=== PATIENT | female | born 1985 | race Caucasian/White ===

== ENCOUNTER 2018-02-04 14:09 | Outpatient (CLI) | payer OTHER ==
--- NOTE | 2018-02-04 16:35 | ULT ---
OBSTETRIC ULTRASOUND: 02/04/18 INDICATION: Evaluate anatomy. COMPARISON: None. FINDINGS: There is a single live intrauterine gestation in breech presentation. The placenta is fundal in locat ion without evidence of previa. The cardiac activity is noted at 155 beats per minute. JULIAN is noted a t 12.6 cm. Biparietal diameter measures 4.98 cm giving an estimated gestational age of 21 weeks and 1 day (58t h percentile). The head circumference measures 18.86 cm giving an estimated gestational age 21 weeks and 1 day (55th percentile). The abdominal circumference measures 16.15 cm giving an estimated gestational age of 21 weeks and 2 d ays (56th percentile). The femoral length was 3.6 cm giving an estimated gestational age of 21 weeks and 3 days (61st percen tile). The estimated weight is 413 grams (69th percentile). The average gestational age of the fetus based on ultrasound measurements 21 weeks and 1 day with est imated due date of 06/16/18. Clinical age by LMP was 20 weeks and 6 day with estimated due date of 06/04 08/22. The visualized head, spine, stomach, kidneys, heart, cord insertion, bladder, lips and nose, th ree vessel cord and extremities were within normal limits. The cervical length was 5.5 cm. IMPRESSION: 1. Single live intrauterine gestation with size and dates as above. 2. survey was within normal limits. POS: [facility]
== END 2018-02-04 14:10 | disposition home or self-care (01) ==
LOC: ULT 14:09
PROVIDERS: ATTEND Obstetrics & Gynecology
DX: Z34.92 Encounter for supervision of normal pregnancy, unspecified, second trimester (principal); Z3A.21 21 weeks gestation of pregnancy
CPT/HCPCS: 76805

== ENCOUNTER 2018-06-11 00:15 | Inpatient (IN) | payer OTHER ==
[2018-06-11 01:20] VITALS: BMI 27.4
[2018-06-11] MEDS ORDERED: Butorphanol Tartrate 1 MG/ML VIAL SLOW IVP PRN (01:58)
[2018-06-11] MEDS ORDERED: Acetaminophen 500 MG TAB PO PRN (01:58)
[2018-06-11] MEDS ORDERED: Promethazine HCl 25 MG/ML VIAL IM PRN ×2 (01:58→09:32)
[2018-06-11] MEDS ORDERED: Ondansetron PF 4 MG/2 ML Vial IVP PRN ×3 (01:58→14:48)
[2018-06-11] MEDS ORDERED: Misoprostol 200 MCG TAB RC PRN (02:00)
[2018-06-11] MEDS ORDERED: Ibuprofen 800 MG TAB PO PRN (02:00)
[2018-06-11] MEDS ORDERED: Misoprostol 100 MCG TAB VAG SCH (02:00)
[2018-06-11] MEDS ORDERED: NS w/ Oxytocin 10 units 500 ML IV SCH ×2 (02:00)
[2018-06-11] MEDS: Lactated Ringer's 1,000 ML IV SCH ×3 (02:00→10:10)
[2018-06-11] MEDS ORDERED: Lidocaine 1% (PF) 30 ML VIAL SC PRN (02:00)
[2018-06-11] MEDS ORDERED: NS / Oxytocin 40 units/1000ml 1,000 ML IV SCH ×2 (02:15→14:48)
[2018-06-11 05:47] LABS: Hemoglobin 10.8 g/dL (12.0-16.0); Mean Corpuscular HGB CONC 31.1 g/dL (32.0-36.0); Mean Corpuscular Volume 83.5 fL (78.0-98.0); Mean Platelet Volume 8.5 fL (7.4-10.4); Platelet Count 227 thou/uL (130-400); RBC Distribution Width 13.1 % (11.5-14.5); Red Blood Cell (RBC) Count 4.14 mill/uL (4.20-5.40); White Blood Cell (WBC) Count 11.5 thou/uL (4.8-10.8)
[2018-06-11 06:23] LABS: Hep B Surf Ag Non-Reactive S/CO (NonReactive); Syphilis Antibody Nonreactive (Nonreactive); Syphilis Antibody Index 0.02 S/CO (<1.00 Non-Reactive)
[2018-06-11] MEDS ORDERED: Bupivacaine/Epinephrine 0.25% 30 ML VIAL ONE (08:00)
[2018-06-11] MEDS ORDERED: Bupivacaine 0.5% 10 ML VIAL ONE (08:00)
[2018-06-11] MEDS ORDERED: ePHEDrine/0.9% NaCl/PF SYRINGE 50 mg/10 ml ONE (08:00)
--- NOTE | 2018-06-11 08:14 | PDOC.LDHP ---
Labor and Delivery H&P Chief complaint: scheduled induction HPI: Pt is here for elective IOL @ 39weeks. Current gestational age (weeks): 39 Due date: 06/18/18 Grav: 2 Para: 1 OB History Details: PPROM/delivery 35 weeks Current complications: none Abnormal US findings: No Current medications: pre- vitamins Allergies/Adverse Reactions: Allergies Allergy/AdvReac Type Severity Reaction Status Date / Time No Known Allergies Allergy Verified 06/11/18 01:21 - Physical Exam Vital signs reviewed and normal: yes General: resting Heart: RRR Lungs: CTAB Abdomen: gravid Extremeties: no edema FHT: category 1 - Vaginal Exam cm dilated: 3 Effacement: 50% Station: -2 - Assessment L&D Assessment: elective induction at term - Plan Plan: admit to L&D, cervical ripening, labor augmentation if indicated, informed consent obtained, anesthesia consult for pain management -: A/P: Elective IOL @ 39 weeks, cytotec for cervical ripening overnight, AROM this AM with scant fluid noted. Will start pitocin.
[2018-06-11] MEDS ORDERED: Fentanyl 4 mcg/Bup 0.1% Cadd 100 ML ONE (08:49)
[2018-06-11] MEDS ORDERED: diphenhydrAMINE 50 MG/ML VIAL IVP PRN (09:32)
[2018-06-11] MEDS ORDERED: Lactated Ringer's 500 ML IV PRN (09:32)
[2018-06-11] MEDS ORDERED: Acetaminophen 325 MG TAB PO PRN (09:32)
[2018-06-11] MEDS ORDERED: ePHEDrine/0.9% NaCl/PF SYRINGE 50 mg/10 ml SLOW IVP PRN (09:32)
[2018-06-11] MEDS ORDERED: Naloxone HCl 0.4 mg/ml Vial IVP PRN ×2 (09:32)
[2018-06-11] MEDS ORDERED: Eucerin (Mineral Oil/Petrolatum,White) 30 gm Jar TOP PRN (09:32)
[2018-06-11] MEDS ORDERED: Communication Order-Pharmacy FS SCH (09:45)
[2018-06-11] MEDS ORDERED: Fentanyl 4 mcg/Bupivacaine 0.1% Cassette 100 ML EPIDURAL SCH (09:45)
--- NOTE | 2018-06-11 13:19 | PDOC.OPDEL ---
OB Operative/Delivery Note Delivery Dr/Surgeon: José Miguel Pre-Delivery Diagnosis: elective induction Procedure/Post Delivery Dx: spontaneous vaginal delivery Weeks gestation: 39 - Findings A Sex: female - 1 min: 9 - 5 min: 9 - Additional Findings/Plan Placenta delivered: spontaneous Repaired Obstetrical Laceration: none Estimated blood loss: 200ml, QBL pending Post delivery plan: routine recovery
[2018-06-11] MEDS ORDERED: Adacel (T-DAP) 0.5 ML SYRINGE IM ONE (14:48)
[2018-06-11] MEDS ORDERED: Lanolin Ointment 7 GM TUBE TOP PRN (14:48)
[2018-06-11] MEDS ORDERED: Benzocaine/Menthol 20-0.5% 60 ML CAN TOP PRN (14:48)
[2018-06-11] MEDS ORDERED: HYDROcodone/Acetaminophen 5/325 mg Tablet PO PRN ×2 (14:48)
[2018-06-11] MEDS ORDERED: Milk Of Magnesia 30 ML UDCUP PO PRN (14:48)
[2018-06-11] MEDS ORDERED: Bisacodyl 10 MG SUPP PR PRN (14:48)
[2018-06-11] MEDS: Ibuprofen 800 MG TAB PO SCH ×2 (22:34)
[2018-06-11] MEDS: Docusate Calcium (SURFAK) 240 MG CAP PO SCH (22:34)
--- NOTE | 2018-06-12 05:53 | PDOC.PP ---
Post Progress Note Post Day #: 1 Subjective: Still some perineal swelling but feels ok, diego in place PO intake tolerated: yes Flatus: yes Ambulation: yes Vital Signs (12 hours) Temp Pulse Resp BP Pulse Ox 06/11/18 20:00 98.2 F 102 H 17 119/72 100 Weight Weight 170 lb Past vitals also reviewed...BPs wnl, sporadic pulse of 107 x 1 noted - Physical Examination General: NAD Cardiovascular: no m/r/g Respiratory: clear to auscultation bilaterally Abdominal: + bowel sounds, lochia, no distention, appropriately TTP Extremities: negative homans (B) Neurological: no gross focal deficits Psychiatric: A&Ox3, normal affect Result Diagrams: 06/11/18 05:28 Additional Labs: Post Labs Blood Type B POSITIVE 06/11/18 05:28 Hep Bs Antigen Non-Reactive S/CO (NonReactive) 06/11/18 05:28 (1) Vaginal delivery Code(s): O80 - ENCOUNTER FOR FULL-TERM UNCOMPLICATED DELIVERY Status: Acute - Assessment/Plan PPD1 s/p at term with QBL chase 200ml...clinically, she is well. Diego in place due to external vulvar edema...ice packs being used. Plan: I offered the patient a stay tonight and DC tomorrow Thursday, but as she has another child at home she would like to be discharged homethis afteroon if able. GBS negative. We will remove diego this am and check void ability. Home at 1600 if able. No evidence active bleed or metritis. F/U in 2- 4 weeks.
[2018-06-12] MEDS: Ibuprofen 800 MG TAB PO SCH ×2 (06:05→13:25)
[2018-06-12] MEDS: Docusate Calcium (SURFAK) 240 MG CAP PO SCH (08:51)
[2018-06-12] MEDS ORDERED: Prenatal Vitamin 1 TAB PO SCH (09:00)
[2018-06-12 12:03] VITALS: BP 122/77; TEMP 97.6
--- NOTE | 2018-06-12 13:48 | PDOC.EVN ---
Event Note - Event Note Event Note: Pt has had diego removed. Pt reports urinating well. Denies any issues. Reports pain well controlled and swelling improving significantly. Pt ready for d/c.
== END 2018-06-12 17:42 | disposition home or self-care (01) | DRG 807 ==
LOC: L&D 00:18 → 3SW 16:26
PROVIDERS: ADMIT Obstetrics & Gynecology; ATTEND Obstetrics & Gynecology
PROC: 3E033VJ Introduction of Other Hormone into Peripheral Vein, Percutaneous Approach (ICD-10-PCS; principal; 2018-06-11)
PROC: 10E0XZZ Delivery of Products of Conception, External Approach (ICD-10-PCS; 2018-06-11)
PROC: 3E0P7VZ Introduction of Hormone into Female Reproductive, Via Natural or Artificial Opening (ICD-10-PCS; 2018-06-11)
DX: O80 Encounter for full-term uncomplicated delivery (principal); Z37.0 Single live birth; Z3A.39 39 weeks gestation of pregnancy
CPT/HCPCS: 36415; 51702; 85027; 86780; 86850; 86900; 86901; 87340; 90715; J2001; J3490